=== PATIENT | female | born 1990 | race Hispanic/Latino ===

== ENCOUNTER 2016-12-02 22:03 | Emergency (ER) | payer BC ==
--- NOTE | 2016-12-02 22:30 | ED PDOC ---
Arrival/HPI - General Chief Complaint: Abdominal Pain Time Seen by Provider: 12/02/16 22:07 Historian: Patient - History of Present Illness Narrative History of Present Illness (Text): 12/02/16 22:22 Lolita Sosa is a 26 year old female, whose past medical history includes IV heroin abuse, who presents to the Emergency department complaining of constipation. Patient states she has been constipated and has not had a bowel movement in over 1 week. Patient states she feels like she may be impacted and self-administered an enema prior to arrival. Patient reports she regularly uses heroin. Patient denies any fever, chills, chest pain, shortness of breath, nausea, vomiting, urinary symptoms, back pain, neck pain, headache, dizziness, or any other complaints. Time/Duration: 1 week Symptom Onset: Gradual Symptom Course: Unchanged Activities at Onset: Rest, Light Context: Home Past Medical History - Provider Review Nursing Documentation Reviewed: Yes - Pulmonary Hx Respiratory Disorders: Yes Hx Asthma: Yes - Gastrointestinal Hx Gastrointestinal Disorders: Yes Hx Irritable Bowel: Yes - Psychiatric Hx Substance Use: Yes (heroin marijuana) Family/Social History - Physician Review Nursing Documentation Reviewed: Yes Family/Social History: No Known Family HX Smoking Status: Heavy Smoker > 10 Cigarettes Daily Hx Alcohol Use: No Hx Substance Use: Yes (heroin marijuana) Allergies/Home Meds Allergies/Adverse Reactions: Allergies aripiprazole [From Abilify] Allergy (Verified 12/02/16 22:12) FATIGUE Home Medications: Home Meds Medication Instructions Recorded Confirmed Albuterol HFA [Ventolin HFA 90 12/02/16 mcg/actuation (8 g)] Levalbuterol [Xopenex] 12/02/16 buPROPion [Wellbutrin] 12/02/16 Review of Systems - Physician Review All systems were reviewed & negative as marked: Yes - Review of Systems Constitutional: Normal. absent: Fevers Eyes: Normal ENT: Normal Respiratory: Normal. absent: SOB, Cough Cardiovascular: Normal. absent: Chest Pain Gastrointestinal: Constipation. absent: Abdominal Pain, Nausea, Vomiting Genitourinary Female: Normal. absent: Dysuria, Hematuria, Urine Output Changes Musculoskeletal: Normal. absent: Back Pain, Neck Pain Skin: Normal. absent: Rash Neurological: Normal. absent: Headache, Dizziness Endocrine: Normal Hemo/Lymphatic: Normal Psychiatric: Normal Physical Exam Vital Signs Reviewed: Yes Vital Signs Temp Pulse Resp BP Pulse Ox 12/03/16 01:46 98.8 F 76 18 132/74 96 12/02/16 22:20 97.7 F 112 H 32 H 128/87 99 Temperature: Afebrile Blood Pressure: Normal Pulse: Regular Respiratory Rate: Normal Appearance: Positive for: Well-Appearing, Non-Toxic, Comfortable Pain Distress: None Mental Status: Positive for: Alert and Oriented X 3 - Systems Exam Head: Present: Atraumatic, Normocephalic Pupils: Present: PERRL Extroacular Muscles: Present: EOMI Conjunctiva: Present: Normal Mouth: Present: Moist Mucous Membranes Neck: Present: Normal Range of Motion Respiratory/Chest: Present: Clear to Auscultation, Good Air Exchange. No: Respiratory Distress, Accessory Muscle Use Cardiovascular: Present: Regular Rate and Rhythm, Normal S1, S2. No: Murmurs Abdomen: Present: Normal Bowel Sounds. No: Tenderness, Distention, Peritoneal Signs Back: Present: Normal Inspection Upper Extremity: Present: Normal Inspection. No: Cyanosis, Edema Lower Extremity: Present: Normal Inspection. No: Edema Neurological: Present: GCS=15, CN II-XII Intact, Speech Normal Skin: Present: Warm, Dry, Normal Color. No: Rashes Psychiatric: Present: Alert, Oriented x 3, Normal Insight, Normal Concentration Medical Decision Making ED Course and Treatment: 12/02/16 22:22 Impression: 26 year old female complaining of constipation. Differential Diagnosis include but are not limited to: constipation vs. fecal impaction Plan: -- Relistor -- Reassess and disposition Progress Notes: 12/03/16 01:00 Fecal disimpaction performed with relief. No complications. RN present as optometric tech 12/03/16 02:10 On re-evaluation, the patient feels better and is in no acute distress. I have discussed the results and plan with the patient, who expresses understanding. Patient in agreement with plan to discharged home. Patient is stable for discharge. Patient was instructed to follow up with physician/clinic in 1-2 days or return if symptoms worsen or new concerning symptoms arise. Re-evaluation Time: 02:10 Reassessment Condition: Re-examined, Improved - RAD Interpretation Radiology Orders: 12/03/16 00:51 ABD 2 VIEWS (FLAT/UP OR DECUB) [RAD] Stat - Medication Orders Current Medication Orders: Discontinued Medications Acetaminophen (Tylenol 325mg Tab) 650 mg PO STAT STA Stop: 12/03/16 00:41 Methylnaltrexone [place] (Relistor) 8 mg SC ONCE ONE Stop: 12/02/16 22:23 Last Admin: 12/02/16 22:30 Dose: 8 MG Subcutaneous Administrations Document 12/02/16 22:30 EKEOO (Rec: 12/02/16 22:30 [id number]) Charges for Administration # of Subcutaneous Administrations 1 Sodium Phosphate (Fleet Enema) 135 ml RC STAT STA Stop: 12/03/16 01:43 - Scribe Statement The provider has reviewed the documentation as recorded by the Everett Croft Provider Attestation: All medical record entries made by the Kangibliza were at my direction and personally dictated by me. I have reviewed the chart and agree that the record accurately reflects my personal performance of the history, physical exam, medical decision making, and the department course for this patient. I have also personally directed, reviewed, and agree with the discharge instructions and disposition. Disposition/Present on Arrival - Present on Arrival Any Indicators Present on Arrival: No History of DVT/PE: No History of Uncontrolled Diabetes: No Urinary Catheter: No History of Decub. Ulcer: No History Surgical Site Infection Following: None - Disposition Have Diagnosis and Disposition been Completed?: Yes Diagnosis: Constipation Disposition: HOME/ ROUTINE Disposition Time: 02:10 Condition: GOOD Discharge Instructions (ExitCare): Constipation (ED)
[2016-12-03 01:47] VITALS: BP 132/74; PULSE 76; RESP 18; TEMP 98.8; O2SAT 96
--- NOTE | 2016-12-03 09:47 | RAD ---
HISTORY: abd pain COMPARISON: No prior. FINDINGS: BOWEL: No bowel obstruction. Mild retained feces. No hepatic or splenic enlargement. No masses or abnormal calcifications. BONES: Normal. OTHER FINDINGS: None. IMPRESSION: Mild retained feces.
== END 2016-12-03 03:05 | disposition home or self-care (01) ==
LOC: ED 22:03
DX: K59.00 Constipation, unspecified (principal)
CPT/HCPCS: 74020; 96372; 99283; J2212